=== PATIENT | male | born 1980 | race Caucasian/White ===

== ENCOUNTER 2018-12-22 08:09 | Emergency (ER) | payer OTHER ==
[~2018-12-22] VITALS: Ht 167.6 cm; Wt 81.7 kg
[2018-12-22 08:38] LABS: ABSOLUTE NEUTROPHILS 10.5 thou/uL (1.4-8.2); BASOPHILS 0.3 % (0.0-2.0); EOSINOPHILS 0.6 % (0.0-3.0); HEMATOCRIT 50.3 % (42.0-52.0); HEMOGLOBIN 17.7 gm/dL (14.0-18.0); MCH 33.8 pg (26.0-34.0); MCHC 35.1 g/dL (28.0-37.0); MCV 96.3 fL (80.0-100.0); MONOCYTES 3.4 % (1.0-8.0); PLATELET COUNT 272 thou/uL (150-400); POLYS 88.7 % (36.0-66.0); RBC 5.23 mil/uL (4.50-6.00); RDW 13.4 % (10.5-14.5); WBC 11.8 thou/uL (4.0-11.0)
[2018-12-22 09:07] LABS: ANION GAP 14 mmol/L (7-16); BUN 7 mg/dL (7-18); CALCIUM 10.1 mg/dL (8.5-10.1); CHLORIDE 100 mmol/L (98-107); CO2 27 mmol/L (21-32); CREATININE 1.1 mg/dL (0.7-1.3); GLUCOSE 116 mg/dL (74-106); SODIUM 141 mmol/L (136-145)
[2018-12-22 09:14] LABS: POTASSIUM 2.9 mmol/L (3.5-5.1)
[2018-12-22 09:16] LABS: LIPASE 258 U/L (73-393); MAGNESIUM 2.1 mg/dL (1.8-2.4); TROPONIN-I <0.06 ng/mL (<0.06)
[2018-12-22 11:11] VITALS: BP 133/68
--- NOTE | 2018-12-23 07:56 | EKG ---
[place] [address] [address] [facility] [place] [address] ELECTROCARDIOGRAM REPORT Name: INGERONN Zaki Room #: [facility]P [facility] [id number] ������������������ Admission: 12/22/18 ������������������ Attend Phys: Discharge: 12/22/18 ������������������ Date of : 82 Report #: [id number] ����������������������������������������������������������������� [id number] THIS REPORT FOR: //name// [facility] ED Test Date: 2018-12-22 Test Time: 08:37:40 Pat Name: RONN ALCAZAR Department: Room: Gender: Maintenance Director: : 1980 Requested By: Lincoln Chatterjee Order Number: [id number] MD: Kem Zaidi Measurements Intervals [place] Rate: 46 P: 29 SD: 145 QRS: 42 QRSD: 92 T: 17 QT: 463 QTc: 405 Interpretive Statements Sinus bradycardia Otherwise normal tracing No previous ECG available for comparison Electronically Signed On 12-23-2018 7:56:19 CDT by Kem Zaidi [email or web address] ��������������������������������������������� <ELECTRONICALLY SIGNED> ���������������������������������������� By: Kem Zaidi MD, [facility] ��������������������������������������������� 12/23/18 [id number] 0837 Kem Zaidi MD, FACC /EPI
== END 2018-12-22 11:06 | disposition home or self-care (01) ==
LOC: ER 08:09
PROVIDERS: Emergency Medicine
DX: R10.13 Epigastric pain (principal); R11.2 Nausea with vomiting, unspecified; F17.210 Nicotine dependence, cigarettes, uncomplicated